=== PATIENT | female | born 2000 | race American Indian/Alaskan Native ===

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

== ENCOUNTER 2020-04-18 09:51 | Emergency (ER) | payer SELFPAY ==
--- NOTE | 2020-04-18 11:10 | Event Note ---
ED Screening Note Date of service: 04/18/20 Time: 11:08 ED Screening Note: 19-year-old female presents with complaints of generalized abdominal pain radiating into her chest and tingling down her left arm starting last night. She admits to urinary frequency She denies any nausea/vomiting/diarrhea She also denies any shortness of breath, cough, or fever Patient does admit to marijuana use yesterday This initial assessment/diagnostic orders/clinical plan/treatment(s) is/are subject to change based on patients health status, clinical progression and re- assessment by fellow clinical providers in the ED. Further treatment and workup at subsequent clinical providers discretion. Patient/guardian urged not to elope from the ED as their condition may be serious if not clinically assessed and managed. Initial orders include:
--- NOTE | 2020-04-18 11:39 | XRay Report ---
CHEST 2 VIEWS INDICATION / CLINICAL INFORMATION: chest pain. COMPARISON: 03/24/2020 FINDINGS: SUPPORT DEVICES: None. HEART / MEDIASTINUM: No significant abnormality. LUNGS / PLEURA: No significant pulmonary or pleural abnormality. No pneumothorax. ADDITIONAL FINDINGS: No significant additional findings. IMPRESSION: 1. No acute findings. Signer Name: Piero Lowery MD Signed: 04/18/2020 11:35 AM Workstation Name: [id number]
[2020-04-18 11:57] LABS: Bacteria,Urine 1+ /HPF (Negative); Bilirubin,Urine NEG (Negative); Blood,Urine NEG (Negative); Color,Urine Yellow (Yellow); HCG Qualitative,Urine Negative (Negative); Mucus,Urine FEW /HPF; Protein,Urine <15 mg/dL mg/dL (Negative); RBC,Urine < 1.0 /HPF (0.0-6.0); Urobilinogen,Urine < 2.0 mg/dL (<2.0)
[2020-04-18 12:10] LABS: Basophils % (Auto) 0.3 % (0.0-1.8); Eosinophils % (Auto) 0.2 % (0.0-4.3); Hematocrit 29.7 % (30.3-42.9); Lymphocytes # (Auto) 1.3 K/mm3 (1.2-5.4); Lymphocytes % (Auto) 11.6 % (13.4-35.0); Mean Corpuscular HGB Conc 30 % (30-34); Mean Corpuscular Volume 68 fl (79-97); Monocytes # (Auto) 0.8 K/mm3 (0.0-0.8); Monocytes % (Auto) 6.6 % (0.0-7.3); Platelet Count 373 K/mm3 (140-440); Red Blood Count 4.37 M/mm3 (3.65-5.03); Red Cell Distribution Width 19.2 % (13.2-15.2)
[2020-04-18 12:38] LABS: Alanine Aminotransferase 10 units/L (7-56); Albumin 4.5 g/dL (3.9-5); BUN/Creatinine Ratio 12; Blood Urea Nitrogen 6 mg/dL (7-17); Calcium 9.2 mg/dL (8.4-10.2)
[2020-04-18] MEDS ORDERED: KETOROLAC 60 MG/2 ML INJ IM ONE (12:53)
[2020-04-18] MEDS ORDERED: NITROFURANTOIN MONOHYD/M-CRYST 100 MG CAP PO ONE (12:54)
[2020-04-18] MEDS ORDERED: traMADol 50 MG TAB PO ONE (12:54)
--- NOTE | 2020-04-18 12:56 | Emergency Department Report ---
ED Abdominal Pain HPI - General Chief Complaint: Chest Pain Stated Complaint: CHEST AND STOMACH PAIN Time Seen by Provider: 04/18/20 11:01 Source: patient Mode of arrival: Wheelchair Limitations: No Limitations - History of Present Illness Initial Comments: 19-year-old female with a past medical history of asthma presents to the hospital complaining of lower abdominal pain since last night that radiates to her entire abdomen and chest. Patient denies dysuria but states she is urinating every 15 minutes. No nausea, vomiting, or fever. Patient also complains of some left arm numbness. She states pain is 9/10 in intensity and worse with palpation and movement. - Related Data Previous Rx's Medication Instructions Recorded Last Taken Type Docusate Sodium [Colace] 100 mg PO BID #30 capsule 03/24/20 Unknown Rx Ferrous Sulfate [Ferrous Sulfate 324 mg PO DAILY #30 tablet. 03/24/20 Unknown Rx 324 MG] Ibuprofen [Motrin] 600 mg PO Q8H PRN #20 tablet 04/18/20 Unknown Rx Nitrofurantoin [place]/M-Cryst 100 mg PO Q12HR #14 capsule 04/18/20 Unknown Rx [Macrobid CAP] traMADoL [Ultram 50 MG tab] 50 mg PO Q6HR PRN #14 tablet 04/18/20 Unknown Rx Allergies Allergy/AdvReac Type Severity Reaction Status Date / Time shellfish derived Allergy Shortness Verified 03/24/20 11:10 of Breath ED Review of Systems ROS: Stated complaint: CHEST AND STOMACH PAIN Other details as noted in HPI Comment: All other systems reviewed and negative ED Past Medical Hx - Past Medical History Previous Medical History?: Yes Hx Asthma: Yes - Surgical History Past Surgical History?: Yes Additional Surgical History: right ankle FX,left fingers FX, Vaginal , right knee torn ligaments - Social History Smoking Status: Unknown if ever smoked Substance Use Type: None - Medications Home Medications: Home Medications Medication Instructions Recorded Confirmed Last Taken Type Docusate Sodium [Colace] 100 mg PO BID #30 capsule 03/24/20 Unknown Rx Ferrous Sulfate [Ferrous Sulfate 324 mg PO DAILY #30 tablet. 03/24/20 Unknown Rx 324 MG] Ibuprofen [Motrin] 600 mg PO Q8H PRN #20 tablet 04/18/20 Unknown Rx Nitrofurantoin [place]/M-Cryst 100 mg PO Q12HR #14 capsule 04/18/20 Unknown Rx [Macrobid CAP] traMADoL [Ultram 50 MG tab] 50 mg PO Q6HR PRN #14 tablet 04/18/20 Unknown Rx ED Physical Exam - General Limitations: No Limitations - Other Other exam information: General: Mild distress secondary to pain Head: Atraumatic Eyes: normal appearance ENT: Moist mucous membranes Neck: Normal appearance, no midline tenderness Chest: Clear to auscultation bilaterally CV: Mild tachycardia Abdomen: Soft, normal bowel sounds, suprapubic tenderness no rebound or guarding Back: Normal inspection Extremity: Normal inspection, full range of motion Neuro: Alert O x 3, no facial asymmetry, speech clear, no gross motor sensory deficit Psych: Appropriate behavior Skin: No rash ED Course Vital Signs 04/18/20 10:45 Temperature 99.1 F Pulse Rate 108 H Respiratory 18 Rate Blood Pressure 124/65 O2 Sat by Pulse 99 Oximetry ED Medical Decision Making - Lab Data Result diagrams: 04/18/20 11:39 04/18/20 11:39 Lab Results 04/18/20 04/18/20 04/18/20 Range/Units 11:34 11:39 11:39 WBC 11.4 H (4.5-11.0) K/mm3 RBC 4.37 (3.65-5.03) M/mm3 Hgb 9.0 L (10.1-14.3) gm/dl Hct 29.7 L (30.3-42.9) % MCV 68 L (79-97) fl MCH 21 L (28-32) pg MCHC 30 (30-34) % RDW 19.2 H (13.2-15.2) % Plt Count 373 (140-440) K/mm3 Lymph % (Auto) 11.6 L (13.4-35.0) % [place] % (Auto) 6.6 (0.0-7.3) % Eos % (Auto) 0.2 (0.0-4.3) % Baso % (Auto) 0.3 (0.0-1.8) % Lymph # 1.3 (1.2-5.4) K/mm3 [place] # 0.8 (0.0-0.8) K/mm3 Eos # 0.0 (0.0-0.4) K/mm3 Baso # 0.0 (0.0-0.1) K/mm3 Seg Neutrophils % 81.3 H (40.0-70.0) % Seg Neutrophils # 9.3 H (1.8-7.7) K/mm3 Sodium 137 (137-145) mmol/L Potassium 4.2 (3.6-5.0) mmol/L Chloride 104.1 (98-107) mmol/L Carbon Dioxide 23 (22-30) mmol/L Anion Gap 14 mmol/L BUN 6 L (7-17) mg/dL Creatinine 0.5 L (0.7-1.2) mg/dL Estimated GFR > 60 ml/min BUN/Creatinine Ratio 12 % Glucose 95 (65-100) mg/dL Calcium 9.2 (8.4-10.2) mg/dL Total Bilirubin 0.20 (0.1-1.2) mg/dL AST 18 (5-40) units/L ALT 10 (7-56) units/L Alkaline Phosphatase 71 (35-129) units/L Troponin T < 0.010 (0.00-0.029) ng/mL Total Protein 7.4 (6.3-8.2) g/dL Albumin 4.5 (3.9-5) g/dL Albumin/Globulin Ratio 1.6 % Lipase 10 L (13-60) units/L Urine Color Yellow (Yellow) Urine Turbidity Clear (Clear) Urine pH 7.0 (5.0-7.0) Ur Specific [place] 1.010 (1.003-1.030) Urine Protein <15 mg/dl (Negative) mg/dL Urine Glucose (UA) Neg (Negative) mg/dL Urine Ketones Neg (Negative) mg/dL Urine Blood Neg (Negative) Urine Nitrite Neg (Negative) Urine Bilirubin Neg (Negative) Urine Urobilinogen < 2.0 (<2.0) mg/dL Ur Leukocyte Esterase Lg (Negative) Urine WBC (Auto) 24.0 H (0.0-6.0) /HPF Urine RBC (Auto) < 1.0 (0.0-6.0) /HPF U Epithel Cells (Auto) 6.0 (0-13.0) /HPF Urine Bacteria (Auto) 1+ (Negative) /HPF Urine Mucus Few /HPF Urine HCG, Qual Negative (Negative) - EKG Data -: EKG Interpreted by Nv EKG shows normal: sinus rhythm, ST-T waves (no stemi) Rate: normal (85) - Radiology Data Radiology results: report reviewed CHEST 2 VIEWS INDICATION / CLINICAL INFORMATION: chest pain. COMPARISON: 03/24/2020 FINDINGS: SUPPORT DEVICES: None. HEART / MEDIASTINUM: No significant abnormality. LUNGS / PLEURA: No significant pulmonary or pleural abnormality. No pneumothorax. ADDITIONAL FINDINGS: No significant additional findings. IMPRESSION: 1. No acute findings. - Medical Decision Making Patient with a UTI. Treated with Macrobid, tramadol, and Toradol in the ED with improvement in pain Heart rate improved with pain reduction Critical Care Time: No Critical care attestation.: If time is entered above; I have spent that time in minutes in the direct care of this critically ill patient, excluding procedure time. ED Disposition Clinical Impression: UTI (urinary tract infection) Disposition: TO HOME OR SELFCARE Is pt being admited?: No Does the pt Need Aspirin: No Condition: Stable Instructions: Urinary Tract Infection in Women (ED) Additional Instructions: Take the medication as prescribed. Follow-up with your doctor or doctor/clinic provided. Return if symptoms worsen as indicated by your discharge instructions. Prescriptions: Nitrofurantoin [place]/M-Cryst [Macrobid CAP] 100 mg PO Q12HR #14 capsule Ibuprofen [Motrin] 600 mg PO Q8H PRN #20 tablet PRN Reason: Pain traMADoL [Ultram 50 MG tab] 50 mg PO Q6HR PRN #14 tablet PRN Reason: Pain Referrals: PRIMARY MD JUAN ANTONIO [Primary Care Provider] - 3-[address] [facility] [Provider Group] - 3-5 Days DAXA BECK MD [Staff Physician] - 3-5 Days Time of Disposition: 14:19
[2020-04-18 14:17] VITALS: BP 110/56
== END 2020-04-18 14:28 | disposition home or self-care (01) ==
LOC: ED 09:51
DX: N39.0 Urinary tract infection, site not specified (principal); J45.909 Unspecified asthma, uncomplicated; Z79.899 Other long term (current) drug therapy; Z91.013 Allergy to seafood; Z98.890 Other specified postprocedural states
CPT/HCPCS: 36415; 71046; 80053; 81001; 81025; 83690; 84484; 85025; 87086; 93005; 96372; 99284; J1885

== ENCOUNTER 2021-01-10 12:17 | Emergency (ER) | payer MEDICAID ==
[2021-01-10 13:18] LABS: Hematocrit 39.5 % (30.3-42.9); Hemoglobin 12.9 gm/dl (10.1-14.3); Mean Corpuscular HGB Conc 33 % (30-34); Mean Corpuscular Volume 79 fl (79-97); Platelet Count 272 K/mm3 (140-440); Red Blood Count 4.99 M/mm3 (3.65-5.03)
[2021-01-10 13:35] LABS: Red Cell Distribution Width 26.9 % (13.2-15.2)
[2021-01-10 13:37] LABS: Alanine Aminotransferase 11 units/L (7-56); Albumin 4.2 g/dL (3.9-5); Blood Urea Nitrogen 8 mg/dL (7-17); Calcium 8.9 mg/dL (8.4-10.2); Hemolysis Index 6
[2021-01-10 13:44] LABS: BUN/Creatinine Ratio 13
--- NOTE | 2021-01-10 13:51 | XRay Report ---
XR chest routine 2V INDICATION / CLINICAL INFORMATION: left sided chest pain. COMPARISON: 04/18/2020 FINDINGS: SUPPORT DEVICES: None. HEART /PULMONARY VASCULATURE: No significant abnormality. LUNGS / PLEURA: No significant pulmonary or pleural abnormality. No pneumothorax. ADDITIONAL FINDINGS: No significant additional findings. IMPRESSION: 1. No acute findings. Signer Name: Ernesto Greer MD Signed: 01/10/2021 1:46 PM Workstation Name: [id number]
[2021-01-10 14:24] LABS: Total Cells Counted 100
[2021-01-10 14:25] VITALS: BP 100/67
--- NOTE | 2021-01-10 14:29 | Emergency Department Report ---
ED Chest Pain HPI - General Chief Complaint: Chest Pain Stated Complaint: CHEST PAIN/BACK/HEADACHE Time Seen by Provider: 01/10/21 14:24 Source: patient Mode of arrival: Ambulatory Limitations: No Limitations - History of Present Illness Initial Comments: 20-year-old female with no significant past history presents to the ER today with complaints of left-sided chest pain. She states that it started last night while she was laying down. She described as a constant pain that is sharp in nature. She states that it seemed to be worse when she is sitting up or laying back down flat and also mildly worse when she coughs. She denies any increased pain when she takes a deep breath. She also reports associated shortness of breath. She denies any serious coughing, nausea, vomiting, abdominal pain, chest injury or strenuous activity, calf pain or lower extremity swelling. She denies history of tobacco use. She denies similar symptoms in the past. MD Complaint: chest pain -: Gradual, Last night - Related Data Previous Rx's Medication Instructions Recorded Last Taken Type Docusate Sodium [Colace] 100 mg PO BID #30 capsule 03/24/20 Unknown Rx Ferrous Sulfate [Ferrous Sulfate 324 mg PO DAILY #30 tablet. 03/24/20 Unknown Rx 324 MG] Nitrofurantoin [place]/M-Cryst 100 mg PO Q12HR #14 capsule 04/18/20 Unknown Rx [Macrobid CAP] traMADoL [Ultram 50 MG tab] 50 mg PO Q6HR PRN #14 tablet 04/18/20 Unknown Rx Albuterol Mdi (or & Nicu Only) 1 - 2 puff IH QID PRN #8.5 gram 01/10/21 Unknown Rx [ProAir HFA Inhaler] Ibuprofen [Motrin 600 MG tab] 600 mg PO Q8H PRN #20 tablet 01/10/21 Unknown Rx methOCARBAMOL [Robaxin TAB] 500 mg PO Q8H PRN #20 tablet 01/10/21 Unknown Rx Allergies Allergy/AdvReac Type Severity Reaction Status Date / Time shellfish derived Allergy Shortness Verified 03/24/20 11:10 of Breath Heart Score - HEART Score History: Slightly suspicious EKG: Normal Age: < 45 Risk factors: No known risk factors Troponin: < normal limit HEART Score: 0 ED Review of Systems ROS: Stated complaint: CHEST PAIN/BACK/HEADACHE Other details as noted in HPI Comment: All other systems reviewed and negative Constitutional: denies: chills, fever Eyes: denies: eye pain, eye discharge, vision change ENT: denies: ear pain, throat pain Respiratory: shortness of breath. denies: cough, orthopnea, SOB with exertion, SOB at rest, stridor, wheezing Cardiovascular: chest pain. denies: palpitations, dyspnea on exertion, orthopnea, edema, syncope, paroxysmal nocturnal dyspnea Gastrointestinal: denies: abdominal pain, nausea, vomiting, diarrhea, constipation, hematemesis, melena, hematochezia Genitourinary: denies: urgency, dysuria, frequency, discharge, abnormal menses, dyspareunia Musculoskeletal: denies: back pain, joint swelling, arthralgia Skin: denies: rash, lesions Neurological: denies: headache, weakness, numbness, paresthesias, confusion, abnormal gait, vertigo Psychiatric: denies: anxiety, depression Hematological/Lymphatic: denies: easy bleeding, easy bruising ED Past Medical Hx - Past Medical History Hx Asthma: Yes - Surgical History Additional Surgical History: right ankle FX,left fingers FX, Vaginal , right knee torn ligaments - Social History Smoking Status: Never Smoker Substance Use Type: None - Medications Home Medications: Home Medications Medication Instructions Recorded Confirmed Last Taken Type Docusate Sodium [Colace] 100 mg PO BID #30 capsule 03/24/20 Unknown Rx Ferrous Sulfate [Ferrous Sulfate 324 mg PO DAILY #30 tablet.dr 03/24/20 Unknown Rx 324 MG] Nitrofurantoin [place]/M-Cryst 100 mg PO Q12HR #14 capsule 04/18/20 Unknown Rx [Macrobid CAP] traMADoL [Ultram 50 MG tab] 50 mg PO Q6HR PRN #14 tablet 04/18/20 Unknown Rx Albuterol Mdi (or & Nicu Only) 1 - 2 puff IH QID PRN #8.5 gram 01/10/21 Unknown Rx [ProAir HFA Inhaler] Ibuprofen [Motrin 600 MG tab] 600 mg PO Q8H PRN #20 tablet 01/10/21 Unknown Rx methOCARBAMOL [Robaxin TAB] 500 mg PO Q8H PRN #20 tablet 01/10/21 Unknown Rx ED Physical Exam - General Limitations: No Limitations General appearance: alert, in no apparent distress - Head Head exam: Present: atraumatic, normocephalic, normal inspection - Eye Eye exam: Present: normal appearance, PERRL, EOMI Pupils: Present: normal accommodation - Respiratory Respiratory exam: Present: normal lung sounds bilaterally, chest wall tenderness (left upper anterior and left lateral chest wall). Absent: respiratory distress, wheezes, rales, rhonchi - Cardiovascular Cardiovascular Exam: Present: regular rate, normal rhythm, normal heart sounds - GI/Abdominal GI/Abdominal exam: Present: soft. Absent: distended, tenderness, guarding - Extremities Exam Extremities exam: Present: normal inspection, full ROM. Absent: pedal edema, joint swelling, calf tenderness - Neurological Exam Neurological exam: Present: alert, oriented X3, CN II-XII intact, normal gait - Psychiatric Psychiatric exam: Present: normal affect, normal mood - Skin Skin exam: Present: intact ED Course Vital Signs 01/10/21 12:29 Temperature 98.0 F Pulse Rate 78 Respiratory 20 Rate Blood Pressure 100/67 O2 Sat by Pulse 100 Oximetry JAVON score - Javon Score Age > 65: (0) No Aspirin use within the Past 7 Days: (1) Yes (Patient took a baby aspirin this morning) 3 or more CAD Risk Factors: (0) No 2 or more Angina events in past 24 hrs: (0) No Known CAD with more than 50% Stenosis: (0) No Elevated Cardiac Markers: (0) No ST Deviation Greater than 0.5mm: (0) No JAVON Score: 1 ED Medical Decision Making - Lab Data Result diagrams: 01/10/21 13:01 01/10/21 13:01 - EKG Data -: EKG Interpreted by Mo EKG shows normal: sinus rhythm Rate: normal (79) - EKG Data Interpretation: normal EKG - Radiology Data Radiology results: report reviewed Patient: BLAYNE HUIZAR MR#: [id number] : 2000 Acct:[id number] Age/Sex: 20 / F ADM Date: 01/10/21 Loc: ED Attending Dr: Ordering Physician: FRANSISCA RASMUSSEN Date of Service: 01/10/21 Procedure(s): XR chest routine 2V Accession Number(s): [id number] cc: FRANSISCA RASMUSSEN Fluoro Time In Minutes: XR chest routine 2V INDICATION / CLINICAL INFORMATION: left sided chest pain. COMPARISON: 04/18/2020 FINDINGS: SUPPORT DEVICES: None. HEART /PULMONARY VASCULATURE: No significant abnormality. LUNGS / PLEURA: No significant pulmonary or pleural abnormality. No pneumothorax. ADDITIONAL FINDINGS: No significant additional findings. IMPRESSION: 1. No acute findings. Signer Name: Shravan Greer MD Signed: 01/10/2021 1:46 PM Workstation Name: [id number] Transcribed By: IRVIN Dictated By: SHRAVAN GREER MD Electronically Authenticated By: SHRAVAN GREER MD Signed Date/Time: 01/10/21 1346 - Medical Decision Making 1438: tThe patient is resting comfortably and is alert and in no distress. Her EKG shows no signs of acute ischemia and the history, exam, diagnostic testing and current condition do not suggest that this patient is having acute myocardial infarction/unstable angina (HEART SCORE 0) significant arrhythmia, pericarditis, esophageal perforation, pulmonary embolism (PERC score 0) aortic dissection, pneumothorax, severe pneumonia, sepsis or other significant pathology that would warrant further testing, continued ED treatment, admission or cardiology or other specialist consultation at this time. She has left sided chest wall tenderness which could be contributing to the pain but I recommend she also gets a COVID 19 test since she has also have symptoms of SOB. Her vit al signs have been stable. Patient expressed understanding of instructions and agree with plan. The patient's condition is stable and appropriate for discharge. The patient will pursue further outpatient evaluation with the primary care physician. Critical care attestation.: If time is entered above; I have spent that time in minutes in the direct care of this critically ill patient, excluding procedure time. ED Disposition Clinical Impression: Atypical chest pain, Chest wall pain, Dyspnea Disposition: DC-01 TO HOME OR SELFCARE Is pt being admited?: No Does the pt Need Aspirin: No Condition: Stable Instructions: Shortness of Breath, Adult, [id number], Chest Wall Pain, [id number], Nonspecific Chest Pain, Adult, [id number] Additional Instructions: Take the Motrin and robaxin as prescribed. You can use the albuterol MDI as needed to help with any shortness of breath. You may want to consider taking a COVID-19 test if your symptoms continues, and especially if you start having associated symptoms of cough, runny nose stuffy nose fever chills. Follow-up c losely with the primary care doctor listed on your discharge instructions. Return to the ER if your symptoms worsens or changes in any way. Prescriptions: Ibuprofen [Motrin 600 MG tab] 600 mg PO Q8H PRN #20 tablet PRN Reason: Pain Albuterol Mdi (or & Nicu Only) [ProAir HFA Inhaler] 1 - 2 puff IH QID PRN #8.5 gram PRN Reason: Shortness Of Breath methOCARBAMOL [Robaxin TAB] 500 mg PO Q8H PRN #20 tablet PRN Reason: Muscle Spasm Referrals: DAXA BECK MD [Staff Physician] - 3-5 Days Forms: Work/School Release Form(ED) Time of Disposition: 14:34
[2021-01-10 14:30] LABS: Anisocytosis 3+; Hypochromasia 1+
[2021-01-10 14:31] LABS: Platelet Estimate Consistent w Auto; Schistocytes Rare
[2021-01-10] MEDS ORDERED: KETOROLAC 60 MG/2 ML INJ IM ONE (14:32)
== END 2021-01-10 14:49 | disposition home or self-care (01) ==
LOC: ED 12:17
DX: R07.89 Other chest pain (principal); R06.00 Dyspnea, unspecified; J45.909 Unspecified asthma, uncomplicated; Z79.899 Other long term (current) drug therapy
CPT/HCPCS: 36415; 71046; 80053; 84484; 84703; 85007; 85025; 93005; 96372; 99283; J1885